=== PATIENT | male | born 1975 | race Caucasian/White ===

== ENCOUNTER → 2016-07-09 | Outpatient (CLI) | payer OTHER ==
[~2016-07-09] MED LIST: BCTROWC TOP; DOCU-94 PO; MAGIC1 PO; NEOM1SUS21 OP; OXYC-57 PO; PRLSR20 PO; [UNRECOGNIZED DRUG - OTHER]
[2016-07-09 12:24] LABS: BASO % 0.5 %; BASO ABS # 0.03 K/uL (0-0.2); COMPLETE YES; HEMATOCRIT 46.9 % (42-52); IG% 0.2 %; LYMPH % 32.4 %; MEAN CELL VOLUME 88.8 fL (80-100); MEAN CORPUSCULAR HEMOGLOBIN 29.5 pg (25-34); MEAN CORPUSCULAR HGB CONC 33.3 g/dl (32-36); MEAN PLATELET VOLUME 10.3 fL (7.4-10.4); MONO % 10.2 %; NEUT % 54.7 %; PLATELET COUNT 244 K/uL (130-400); RED BLOOD COUNT 5.28 M/uL (4.7-6.1); WHITE BLOOD COUNT 5.87 K/uL (4.8-10.8)
[2016-07-09 13:28] LABS: BLOOD UREA NITROGEN 18 mg/dl (7-18); BUN/CREATININE RATIO 18.3 (10-20); CALCIUM 9.6 mg/dl (8.5-10.1); CARBON DIOXIDE 29 mmol/L (21-32); CHLORIDE 107 mmol/L (98-107); CREATININE 0.97 mg/dl (0.60-1.40); GLUCOSE 84 mg/dl (70-99); POTASSIUM 3.8 mmol/L (3.5-5.1); SODIUM 143 mmol/L (136-145)
== END | disposition home or self-care (01) ==
LOC: C.LABBFT 08:42
PROVIDERS: ATTEND Surgery
DX: K64.4 Residual hemorrhoidal skin tags (principal)

== ENCOUNTER → 2016-07-20 | Day surgery (SDC) | payer OTHER ==
[2016-07-12 11:41] VITALS: Ht 180.3 cm; Wt 86.4 kg
[~2016-07-20] VITALS: Ht 180.3 cm; Wt 86.4 kg
[~2016-07-20] MED LIST changes: +ATROPINE SULFATE 0.1 MG/ML 5ML SYR IV PRN; -BCTROWC TOP; +BENZOIN SPRAY 118 ML BTL TOP ONE; +BUPIVACAINE 0.5 % 5 MG/1 ML MPF 30ML VIAL ONE; +DEXAMETHASONE SOD INJ 4 MG/ML VIAL IV PRN; +EpHEDrine SULFATE INJ 50 MG/ML AMP IV PRN; +FENTANYL CITRATE INJ 50 MCG/1 ML 2 ML VIAL IV PRN; +FENTANYL CITRATE INJ 50 MCG/1 ML 2 ML VIAL ONE; +GELATIN SPONGE SZ 100 ONE; +KETAMINE HCL INJ 50 MG/ML 10 ML VIAL ONE; +KETOROLAC TROMETHAMINE 30 MG/ML VIAL IV. PRN; +LABETALOL HCL IV 5 MG/ML 20ML IV PRN; +LACTATED RINGER'S 1000ML 1,000 ML IV SCH; +LIDOCAINE HCL 2% 2 ML VIAL (20MG/ML) ONE; -MAGIC1 PO; +METOCLOPRAMIDE HCL INJ 5 MG/ML 2 ML VIAL IV PRN; +MIDAZOLAM HCL 1 MG/ML 2ML VIAL ONE; +MoRPHine SULFATE 10 MG/ML CARP/VIAL IV PRN; +MoRPHine SULFATE 2 MG/ML CARP IV PRN; -NEOM1SUS21 OP; +ONDANSETRON INJ 2 MG/ML 2 ML VIAL IV PRN; +ONDANSETRON INJ 2 MG/ML 2 ML VIAL ONE; +OXYCODONE/ACETAMINOPHEN 5-325 TAB PO PRN; +PHENYLEPHRINE 100MCG/ML 5ML SYR IV PRN; +PROPOFOL IV EMULSION 10 MG/ML 20 ML VIAL IV ONE; -[UNRECOGNIZED DRUG - OTHER]
--- NOTE | 2016-07-20 06:33 | History & Physical Bridge Note ---
H&P Re-Evaluation Bridge Note: I have examined the patient, reviewed the History & Physical and in the interval since the performance of the History & Physical I have noted the following changes of clinical significance: No changes noted to be here later to pick him up
--- NOTE | 2016-07-20 07:04 | Discharge Instructions ---
Discharge Instructions Date of Service July 20, 2016. Visit Reason for Visit: External Hemorrhoids Discharge Discharge Diagnosis / Problem: hemorrhoidectomy Discharge Goals Goal(s): Decrease discomfort Activity Recommendations Activity Limitations: as noted below Lifting Limitations: no more than 10 pounds Shower/Bathe: tomorrow Driving or Machine Use: resume 3 days after discharge Anesthesia . Post Anesthesia Instructions: If you have had General Anesthesia or IV Sedation: * Do not drive today. * Resume driving when surgeon permits. * Do not make important decisions or sign legal documents today. * Call surgeon for: 1. Temperature elevations greater than 101 degrees F. 2. Uncontrollable pain. 3. Excessive bleeding. 4. Persistent nausea and vomiting. 5. Medication intolerance (nausea, vomiting or rash). * For nausea and vomiting use only clear liquids such as: tea, soda, bouillon until nausea subsides, then gradually increase diet as tolerated. * If you have any concerns or questions, call your surgeon's office. If physician is unavailable and it is an emergency, call 911 or go to the nearest emergency room. . Instructions / Follow-Up Instructions / Follow-Up Follow-up Dr. Rodriguez's office in 1 week, call [phone] if you do not already have an appt Remove packing tomorrow and begin sitz baths 3-4 times daily Diet Recommendations Recommended Home Diet: no limitations Pending Studies Studies pending at discharge: no Medical Emergencies . Who to Call and When: Medical Emergencies: If at any time you feel your situation is an emergency, please call 911 immediately. . Non-Emergent Contact Non-Emergency issues call your: Surgeon Call Non-Emergent contact if: you have a fever, temperature is above 101.5, your pain is not controlled, you have any medication questions . . "Provider Documentation" section prepared by Oscar Arboleda. .
--- NOTE | 2016-07-20 07:41 | [facility] Post Operative Brief Note ---
Immediate Operative Summary Operative Date July 20, 2016. Pre-Operative Diagnosis External Hemorrhoids Post-Operative Diagnosis Same + anal polyp Procedure(s) Performed Anal Exam Under Anesthesia, Anal polyp Excision, 3-point Hemorrhoidectomy Surgeon Dr Rodriguez Sleep Technologist Surgeon(s) Monster Arboleda PA-C Estimated Blood Loss 10ml Findings small .4mm anal polyp at 7 position Specimens A: Anal Polyp B: Right Anterior Hemorrhoid C: Right Posterior Hemorrhoid D; left post D: Left Superior Hemorrhoid
--- NOTE | 2016-07-20 08:25 | OPERATIVE REPORT ---
DATE OF OPERATION: 07/20/2016 PREOPERATIVE DIAGNOSIS: External hemorrhoids, minimal tissue but patient adamant for excision. POSTOPERATIVE DIAGNOSIS: Same, 3-point protrusion and small anal polyp. PROCEDURE: Exam under anesthesia, excision of anal polyp at 7 o'clock position, size of polyps approximately 0.5 cm, it was on a stalk, and 3-point hemorrhoidectomy. SURGEON: Dr. Rodriguez. FIRST SURGEON: Félix Arboleda PA-C. OPERATION AND FINDINGS: SUMMARY: The patient was brought into the operating room theater and placed in jackknife position. The perianal area was shaved and properly draped, spread apart cheeks by using 4 inch piece of tape. The area was then prepped. At this point, we externally could see the patient has some hemorrhoidal tissue nonsignificant but we progressively dilated the sphincter. Digital exam showed no masses, good sphincter tone. There were no fissures. Dilated the sphincter to approximately 2 fingers and then was able to place the large anal scope. We visualized the internal area, could identify a small polyp at 7 o'clock position, it was on a stalk so we excised it with cautery. This was sent for specimen. The other inspection was free of any other tissue. I placed a 4 x 4 gauze that I placed a long chromic suture on it to retrieve it down into the canal. At this point we systematically removed 3 groups of hemorrhoids, 2 on the right and 1 on the left using the apical sutures of chromic and then excising the tissue down to beyond the anal opening to the skin, pushing the sphincters away and then be able to oversew it with a running chromic suture excising the excess tissue. Each one was sent separately. Hemostasis on each one of these was satisfactory, we injected each field with 0.5 Marcaine without epinephrine. The area was checked for hemostasis and appeared satisfactory. At this point, we placed the larger scope. We were able then to retrieve the 4 x 4 that we placed in the rectum and then used a Gelfoam folded on itself, wrapped in Vaseline gauze to place down the canal and dressing was applied. The procedure was tolerated well by the patient. Estimated blood loss approximately 10 mL at maximum. Procedure was tolerated well. I attest to the content of the Intraoperative Record and any orders documented therein. Any exceptio ns are noted below.
[2016-07-20 08:47] VITALS: TEMP 36.8
--- NOTE | 2016-07-20 08:57 | Anesthesia Progress Nt - [facility] ---
Anesthesia Post Op Note Date & Time July 20, 2016 at 08:57 Vital Signs Pain Intensity: 0 Vital Signs Past 12 Hours Date Time Temp Pulse Resp B/P Pulse Ox O2 Delivery O2 Flow Rate FiO2 07/20/16 08:38 61 12 95 07/20/16 08:38 61 12 07/20/16 08:36 114/72 07/20/16 08:36 36.3 48 12 110/71 96 Diffusion Mask 07/20/16 08:33 50 9 95 07/20/16 08:33 51 9 07/20/16 08:31 112/70 07/20/16 08:28 49 10 96 07/20/16 08:28 50 10 07/20/16 08:26 114/71 07/20/16 08:23 53 13 07/20/16 08:23 54 13 97 07/20/16 08:21 117/72 07/20/16 08:18 51 12 100 07/20/16 08:18 50 12 07/20/16 08:16 119/82 07/20/16 08:13 52 11 99 07/20/16 08:13 53 11 07/20/16 08:11 116/72 07/20/16 08:08 50 13 99 07/20/16 08:08 50 13 07/20/16 08:06 118/75 07/20/16 08:03 58 13 100 07/20/16 08:03 58 13 07/20/16 08:01 116/75 07/20/16 07:58 54 18 07/20/16 07:58 56 18 98 07/20/16 07:56 114/77 07/20/16 07:54 124/76 07/20/16 07:53 36.1 54 16 124/76 100 Diffusion Mask 6 07/20/16 06:30 36.8 67 18 123/83 98 Room Air Notes Mental Status: alert / awake / arousable, participated in evaluation Pt Amnestic to Procedure: Yes Nausea / Vomiting: adequately controlled Pain: adequately controlled Airway Patency, RR, SpO2: stable & adequate BP & HR: stable & adequate Hydration State: stable & adequate Anesthetic Complications: no major complications apparent
[2016-07-20 09:20] VITALS: BP 100/52; PULSE 52; O2SAT 97
== END | disposition home or self-care (01) ==
LOC: X.SURG 06:18
PROVIDERS: ATTEND Surgery
DX: K64.4 Residual hemorrhoidal skin tags (principal); K62.0 Anal polyp; E78.00 Pure hypercholesterolemia, unspecified; K21.9 Gastro-esophageal reflux disease without esophagitis

== ENCOUNTER → 2017-04-05 | Outpatient (CLI) | payer OTHER ==
[~2017-04-05] MED LIST changes: -ATROPINE SULFATE 0.1 MG/ML 5ML SYR IV PRN; -BENZOIN SPRAY 118 ML BTL TOP ONE; -BUPIVACAINE 0.5 % 5 MG/1 ML MPF 30ML VIAL ONE; -DEXAMETHASONE SOD INJ 4 MG/ML VIAL IV PRN; -EpHEDrine SULFATE INJ 50 MG/ML AMP IV PRN; -FENTANYL CITRATE INJ 50 MCG/1 ML 2 ML VIAL IV PRN; -FENTANYL CITRATE INJ 50 MCG/1 ML 2 ML VIAL ONE; -GELATIN SPONGE SZ 100 ONE; -KETAMINE HCL INJ 50 MG/ML 10 ML VIAL ONE; -KETOROLAC TROMETHAMINE 30 MG/ML VIAL IV. PRN; -LABETALOL HCL IV 5 MG/ML 20ML IV PRN; -LACTATED RINGER'S 1000ML 1,000 ML IV SCH; -LIDOCAINE HCL 2% 2 ML VIAL (20MG/ML) ONE; -METOCLOPRAMIDE HCL INJ 5 MG/ML 2 ML VIAL IV PRN; -MIDAZOLAM HCL 1 MG/ML 2ML VIAL ONE; -MoRPHine SULFATE 10 MG/ML CARP/VIAL IV PRN; -MoRPHine SULFATE 2 MG/ML CARP IV PRN; -ONDANSETRON INJ 2 MG/ML 2 ML VIAL IV PRN; -ONDANSETRON INJ 2 MG/ML 2 ML VIAL ONE; -OXYC-57 PO; -OXYCODONE/ACETAMINOPHEN 5-325 TAB PO PRN; -PHENYLEPHRINE 100MCG/ML 5ML SYR IV PRN; -PROPOFOL IV EMULSION 10 MG/ML 20 ML VIAL IV ONE
== END | disposition home or self-care (01) ==
LOC: C.LABBFT 07:56
PROVIDERS: ATTEND Nurse Practitioner
DX: R10.13 Epigastric pain (principal)